=== PATIENT | female | born 1955 | race Caucasian/White ===

== ENCOUNTER 2018-09-25 08:58 | Outpatient (CLI) | payer SELFPAY ==
--- NOTE | 2018-09-25 13:39 | DI.COMBO_ITS ---
SYMPTOMS/DIAGNOSIS: SCREENING AND LEFT BREAST MASS MAMMOGRAM AND LEFT BREAST ULTRASOUND: Mammogram and left breast ultrasound are interpreted in conjunction. The breasts are of moderate density with fairly symmetrical distribution of fibroglandular tissue. There is a new area of mass-like radiodensity measuring up to about 3 cm in diameter in the upper outer quadrant of the left breast, which was not present on previous mammogram of March 2010. This corresponds to a 27 mm in greatest diameter ultrasonographically identified mass in approximately the 1 o'clock position 4 cm from the nipple. This has a somewhat irregular border and heterogeneous internal echotexture with slightly increased intralesional vascular flow. Microcalcifications are visible both mammographically and ultrasonographically. CONCLUSION: Indeterminate but suspicious left breast lesion, no additional lesion identified. Biopsy recommended. This may be accomplished with ultrasound guidance. Category 4, breast density category B. MQSA ASSESSMENT OF FINDINGS: Suspicious. Biopsy should be considered. Category 4. Patient will receive a letter notifying them of these results. BI-RADS category B. There are scattered areas of fibroglandular density.
== END 2018-09-25 09:18 ==
PROVIDERS: Visit Provider Obstetrics & Gynecology
DX: N63.21 Unspecified lump in the left breast, upper outer quadrant (principal); Z12.31 Encounter for screening mammogram for malignant neoplasm of breast
CPT/HCPCS: 76642; 77062; 77066; G0279

== ENCOUNTER 2018-10-07 00:31 | Outpatient (CLI) | payer SELFPAY ==
--- NOTE | 2018-10-07 08:00 | OPPNE_ITS ---
Procedure note- Procedure done in Radiology Consent discussed and patient signed Pre-op Dx: Left Breast Mass Post-op Dx: same Surgeon: Nilay Buchanan MD Anesthesia: Local anesthesia with 1% Lidocaine Blood loss: 2 cc Specimen: Core needle biopsy x3 Complications: no immediate complications Procedure: After informed consent was obtained the patient was placed in a supine position. US was done of the Breast and the lesion was localized by the US tech. The skin was cleaned with alcohol and infiltrated with the above local anesthetic. The skin was then prepped. An incision was made with an 11 blade. Using a 14 gauge core needle 3 specimens were removed and placed on telfa and placed in formalin. The skin was cleaned and dried and a band aid was applied. The patient tolerated the procedure well and there were no immediate complications.
--- NOTE | 2018-10-07 13:37 | DI.US_ITS ---
SYMPTOMS/DIAGNOSIS: LEFT BREAST MASS ULTRASOUND GUIDANCE FOR BREAST BIOPSY: Ultrasound guidance was provided for breast biopsy performed by Dr. Buchanan. Please see Dr. Buchanan's procedure note. Hard copies show needle placement in the left breast mass in the 1 o'clock position 4 cm from the nipple.
--- NOTE | 2018-10-07 14:00 | BREAST_PTH ---
PATIENT: Alberta Sommer LOC: [facility] U#:[id number] AGE/SX: 63/F ROOM: RE10/07/[address]: Alejandra Buchanan MD : 1955 BED: DIS: 10/07/2018 SPEC #: [id number] RECD: 10/07/18 17:39 STATUS: TERESA RESulema #: [id number] CT: 10/07/18 14:[address]: Alejandra Buchanan DEPT: Surgical Specimen RECD BY: Billie Askew Tissues: 1 - BREAST BX NEEDLE Procedures: GROSS AND MICRO LEVEL 4 HERCEPTEST ESTROGEN/PROGESTERONE RECEPTOR IPEX STAIN Comments: [id number]
== END 2018-10-07 00:51 ==
PROVIDERS: Visit Provider Surgery
DX: C50.412 Malignant neoplasm of upper-outer quadrant of left female breast (principal); Z17.0 Estrogen receptor positive status [ER+]
CPT/HCPCS: 19083; 88305; 76942; 88360

== ENCOUNTER 2018-11-05 07:06 | Day surgery (SDC) | payer SELFPAY ==
[2018-11-05] VITALS (12 sets, daily range): BP systolic 76–108; BP diastolic 33–64; PULSE 65–79; RESP 14–16; TEMP 36.1–36.6; O2SAT 95–100
--- NOTE | 2018-11-05 07:15 | W.PM.OP ---
Date of service: 11/05/18 Time of Service: 11:10 Operative Note Operative Note DATE OF PROCEDURE: 11/05/18 PRE-OP DIAGNOSIS: Left Breast Cancer POST-OP DIAGNOSIS: same PROCEDURE: 1. SLN biopsy 2. Needle localized lumpectomy left Breast SURGEON: Alejandra Buchanan INTERNAL REVENUE AGENT: Petty Lopez ANESTHESIA: GETA PATHOLOGY: other COMPLICATIONS: None Patient was transported to: PACU Patient's condition: stable Procedure Description: After informed consent was obtained the patient was taken to the PACU for anesthesia to do a erector spinae block on the left side. Once the block was done the patient was taken into the operating room and placed in a supine position. She was placed under general anesthesia and an LMA was placed. SCDs were applied. Next 2 cc of methylene blue was injected into the dermis around the nipple on the left and the area was massaged. Using the [employer] counter the axilla was scanned and a pat was placed on the skin at the hottest area. Tumor count was [id number]. The count in the axilla was 694. The left chest and left axilla were prepped and draped in a sterile surgical fashion. At this point a timeout was done. The patient's name, date of , antibiotic prophylaxis, DVT prophylaxis were reviewed. Fire risk with assessed. With the US the mass was identified and a needle was placed into the mass under US guidence. Next 1% Lidocaine with epinephrine was injected into the dermis at the site of incision near the wire and in the axilla at the previously marked area. Next an incision was made were the wire was with a 15 blade. Dissection was done around the mass with cautery. The tissue was grasped with an kevin and dissected around the periphery and the posterior portion of the mass down to the pectoralis muscle. Once the tissue was completely removed it was marked with a single suture at the superior corner and with a double suture at the anterior margin. The tissue was removed from the table and placed into a container for radiology. The specimen was the XRayed. The clip that was placed at the time of the biopsy was identified on the Xray. There was normal appearing tissue all around the mass. 4 vascular clips were placed into the cavity. Bleeding was stopped using suture ligation and cautery. Once the cavity was dry it was irrigated. Using a 15 blade the skin was incised in the axilla. The Adriana counter was used to identify the sentinel lymph node. At first I could not find the sentinel node. Dissection down to the lymph node was done bluntly with a hemostat. I then felt around with my fingers and felt a few enlarged lymph nodes that were stuck together. They were removed and placed in formalin. I then used the adriana counter under the pectoralis and was able to find a sentinel lymph node which was also blue. Once the lymph node was identified again it was removed and placed in a separate container with formalin. The adriana count was 3858. The adriana counter was then placed back into the axilla and no other hot lymph nodes were identified. Post lymph node 10-second count was less than 10% of the initial count. Some bleeding was noted within the axilla and this was stopped with cautery as well as suture ligation. Both wounds were irrigated again and dried. Once there was no more bleeding Jefferson was applied into both wounds. The subcutaneous tissue was re-approxiamted with 3-0 vicryl. The dermis was closed with running 4-0 vicryl. The skin was cleaned and dried. Skin-affix was applied to both incisions. At this point the patient was woken up extubated and moved over to the [facility]. Patient was taken back to recovery room in stable condition. Sponge instrument needle counts were correct x2 at the end of the case. There were no immediate complications.
--- NOTE | 2018-11-05 07:20 | PDOC.DSDIS_ITS ---
Discharge Plan Disposition Patient Disposition: HOME Condition: Good Discharge Details Reason For Visit: left Breast cancer Attending Provider: Alejandra Buchanan Home Meds and New Rx's Prescriptions: New acetaminophen [Tylenol] 325 mg tablet 650 mg PO Q6H PRN (Reason: fever or pain) Qty: 30 RF: 0 ibuprofen 600 mg tablet 600 mg PO Q6H PRN (Reason: fever or pain) Qty: 30 RF: 0 hydrocodone-acetaminophen [[place]] 5-325 mg tablet 1 tab PO Q6H PRN (Reason: pain) Qty: 14 RF: 0 Continued melatonin 3 mg tablet 5 mg PO HS PRNRF: 0 Discharge Instructions Instructions: Breast Lumpectomy (GEN), [place] Lymph Node Biopsy (GEN) Additional Instructions: Activity at Home after surgery: 1. Make sure you walk outside at least 4 times per day 2. You should be able to climb a flight of stairs 3. No driving while in pain or taking pain medications 4. No strenuous activity or heavy lifting for 2 weeks Diet, Nutrition, & wound healin. Avoid alcohol until after you are recovered from your surgery 2. Make sure to eat plenty of lean protein (meat, fish, eggs, cottage cheese, beans) 3. Eat a variety of fruits and vegetables. Eat plenty of high fiber foods to avoid constipation. 4. Drink plenty of liquids to stay hydrated and avoid constipation Pain Medications: 1. Alternate Tylenol 650 mg every 6 hours as needed and Ibuprofen 600 mg every 6 hours as needed 2. If a narcotic has been prescribed take as directed only for breakthrough pain For Constipation: 1. Take Milk of Magnesia or MiraLax as needed for constipation Other: 1. You may shower daily. Do not scrub the incisions 2. Do not soak the incisions for 1 week 3. You may alternate ice and heat as needed for pain and swelling Wound Care: 1. Keep the incisions clean and dry Please call our office if you develop: 1. Fevers >101.5 2. Nausea or Vomiting 3. Worsening pain 4. Redness and thick discharge from the wounds If after hours please call the Hospital at and ask to speak to the on-call surgeon Activity:: Activity as Tolerated Diet:: As Tolerated Discharge Orders Discharge Orders: Discharge Order (Routine); Ordered 11/05/18 Ordered By: Alejandra Buchanan DS: Diagnosis Discharge Diagnosis (1) Ductal carcinoma of left breast: Status: Acute (2) Status post partial mastectomy of left breast: Status: Acute
--- NOTE | 2018-11-05 08:00 | DI.NM_ITS ---
SYMPTOMS/DIAGNOSIS: LEFT BREAST CANCER, C50.412 SENTINAL NODE INJECTION ONLY: 1.0 millicuries of Sulfur Colloid was administered intradermally by Dr. Buchanan. Patient was followed in the operating room by shielded Gamma probe.
[2018-11-05] MEDS: Lactated Ringers 1,000 ML 80 ML IV ×2 (08:07→12:46)
[2018-11-05] MEDS: Bupivacaine LIPOSOME/PF 133 MG/10 ML VIAL IJ ×2 (09:25→12:23)
[2018-11-05] MEDS: Bupivacaine 0.25% Pres-Free 30 ML VIAL (09:25)
[2018-11-05] MEDS: ceFAZolin 2 GM/50 ML BAG 200 GM (10:54)
--- NOTE | 2018-11-05 11:00 | DI.US_ITS ---
EXAM: US NEEDLE LOCAL BREAST WO RAD CLINICAL HISTORY: NEWLY DIAGNOSED LT BREAST CA. TECHNIQUE: Specimen radiograph ultrasound performed using standard protocol. COMPARISON: US needle local breast wo rad from 10/07/2018 FINDINGS: Specimen radiograph was acquired on biopsy specimen provided by Dr. Buchanan. Specimen radiograph con firms that the mass and microcalcifications identified in the left breast on recent mammogram are pre sent in the biopsy specimen.
--- NOTE | 2018-11-05 11:50 | BREAST_PTH ---
PATIENT: Alberta Sommer LOC: [facility] U#:[id number] AGE/SX: 63/F ROOM: RE11/05/[address]: Alejandra Buchanan MD : 1955 BED: DIS: 11/05/2018 SPEC #: [id number] RECD: 11/06/18 12:29 STATUS: TERESA RESulema #: [id number] CT: 11/05/18 11:[address]: Alejandra Buchanan DEPT: Surgical Specimen RECD BY: Billie Askew Tissues: 1 - BREAST INCISION/EXCISION 2 - BREAST INCISION/EXCISION 3 - BREAST INCISION/EXCISION Procedures: GROSS AND MICRO LEVEL 5 Comments: [id number] (ALL SPECIMENS RADIOACTIVE)
[2018-11-05] MEDS: Lidocaine 1% Multi-Dose 50 ML VIAL (12:00)
--- NOTE | 2018-11-05 12:10 | DI.MAMMO_ITS ---
EXAM: MG MAMMO SPECIMEN CLINICAL HISTORY: OPERATIVE BIOPSY - SPECIMIEN DELIVERED TO DI. COMPARISON: mammo diagnostic BI from 09/25/2018 FINDINGS: Specimen radiographs were obtained and confirm that the microcalcifications and mass identified in th e left breast on recent mammography are in the biopsy specimen.
[2018-11-05] MEDS: Bupivacaine 0.25% Pres-Free 10 ML VIAL (12:23)
[2018-11-05] MEDS: HYDROmorphone 2 MG/ML VIAL IVP (13:30)
[2018-11-05] MEDS: LORazepam 2 MG/ML VIAL 0.5 MG IVP (13:50)
[2018-11-05] MEDS: Ibuprofen 600 MG TAB PO (16:12)
== END 2018-11-05 17:05 | disposition home or self-care (01) ==
PROVIDERS: Visit Provider Surgery
PROC: (CPT 38525; principal; 2018-11-05 09:30)
PROC: (CPT 38525; 2018-11-05 09:30)
DX: C50.412 Malignant neoplasm of upper-outer quadrant of left female breast (principal); Z17.0 Estrogen receptor positive status [ER+]; C77.3 Secondary and unspecified malignant neoplasm of axilla and upper limb lymph nodes
CPT/HCPCS: 38525; 19301; 38792; 76942; 77061; 77065; A9541; 88307; G0279; J0131; J0690; J1100; J1200; J1885; J2060; J2250; J2405; J3010

== ENCOUNTER 2018-11-25 10:32 | Day surgery (SDC) | payer SELFPAY ==
--- NOTE | 2018-11-25 06:59 | W.PM.OP ---
Date of service: 11/25/18 Time of Service: 12:41 Operative Note Operative Note DATE OF PROCEDURE: 11/25/18 PRE-OP DIAGNOSIS: Left Breast Cancer with positive anterior margin POST-OP DIAGNOSIS: same PROCEDURE: Re-excision of skin for positive margin SURGEON: Alejandra Buchanan AMPOULE FILLER AND SEALER: Petty Lopez ANESTHESIA: MAC (ASA 2/ Jhony Griffith CRNA) ESTIMATED BLOOD LOSS: 10 PATHOLOGY: other (skin, marked with single suture superior and double suture medial) COMPLICATIONS: None Patient was transported to: same day Patient's condition: stable Indications: Alberta is a pleasant 63 year old female with a diagnoses of Ductal Breast Cancer and DCIS. She is s/p Lumpectomy and SLN bx. The anterior margin( under the skin) was positive for DCIs. She is here today to have some skin removed to be able to get a clear margine. Risks, benefits an complications have been reviewed. Questions were answered to her staisfaction and she wished to proceed Findings: Seroma Procedure Description: After informed consent was obtained the patient was taken to the Operating room and placed in a supine position. She was placed under MAC sedation. Once asleep and comfortable a time out was done. Her name, , allergies and procedure to be done were reviewed. Next the patients left breast was prepped and draped in a standard fashion. Exparel mixed with .25% Bupivacain was injected into the dermis. An elliptical incision was made around the old scar. The incision measured 15 x 2 cm. The skin and subcutaneous tissue was removed and marked with a single suture superior and a double suture medial. The skin was placed in formalin. The cavity from the lumpectomy done 2 weeks ago was inspected. There was some serosanguinous fluid which was removed. Some bleeding was noted from the dermis and this was stopped with cautery. Once the skin was dry the subcutaneous tissue was re-approximated with interrupted 3-0 Vicryl and the dermis was closed with a continuous 4-0 vicryl suture. The skin was cleaned and dried and skin affix was applied. The patient was woken up and taken back to [facility] in stable condition. Instrument, sponge and needle counts were correct x 2.
--- NOTE | 2018-11-25 07:00 | W.PM.DSUDISC ---
Discharge Plan Disposition Patient Disposition: HOME Condition: Good Discharge Details Reason For Visit: (L) BREAST CA Attending Provider: Alejandra Buchanan Primary Care Provider: Rachelle Lundy Home Meds and New Rx's Prescriptions: New hydrocodone-acetaminophen [[place]] 5-325 mg tablet 1 tab PO Q6H PRN (Reason: pain) Qty: 14 RF: 0 lorazepam [Ativan] 1 mg tablet 1 mg PO TID PRN (Reason: anxiety) Qty: 14 RF: 0 Continued melatonin 3 mg tablet 5 mg PO HS PRNRF: 0 acetaminophen [Tylenol] 325 mg tablet 650 mg PO Q6H PRN (Reason: fever or pain) Qty: 30 RF: 0 ibuprofen 600 mg tablet 600 mg PO Q6H PRN (Reason: fever or pain) Qty: 30 RF: 0 hydrocodone-acetaminophen [[place]] 5-325 mg tablet 1 tab PO Q6H PRN (Reason: pain) Qty: 14 RF: 0 Discharge Instructions Additional Instructions: Activity at Home after surgery: 1. Make sure you walk outside at least 4 times per day 2. You should be able to climb a flight of stairs 3. No driving while in pain or taking pain medications 4. No strenuous activity or heavy lifting for 4weeks (open surgery) Diet, Nutrition, & wound healin. Avoid alcohol until after you are recovered from your surgery 2. Make sure to eat plenty of lean protein (meat, fish, eggs, cottage cheese, beans) 3. Eat a variety of fruits and vegetables. Eat plenty of high fiber foods to avoid constipation. 4. Drink plenty of liquids to stay hydrated and avoid constipation Pain Medications: 1. Alternate Tylenol 650 mg and Ibuprofen 600 mg every 3 hours 2. If a narcotic has been prescribed take as directed only for breakthrough pain Other Medications: Ativan 1 mg. May take 1/2 to 1 tab every 8 hours as needed for anxiety. Do not drive if you have taken this medication For Constipation: 1. Take Milk of Magnesia or MiraLax as needed for constipation Other: 1. You may shower daily. Do not scrub the incisions 2. Do not soak the incisions for 1 week 3. You may alternate ice and heat as needed for pain and swelling Wound Care: 1. Keep the incisions clean and dry Please call our office if you develop: 1. Fevers >101.5 2. Nausea or Vomiting 3. Worsening pain 4. Redness and thick discharge from the wounds If after hours please call the Hospital at and ask to speak to the on-call surgeon Referrals: Alejandra Buchanan MD [ [facility] STAFF PHYSICIAN] - 12/09/18 1:30 pm Activity:: Activity as Tolerated Diet:: As Tolerated Discharge Orders Discharge Orders: Discharge Order (Routine); Ordered 11/25/18 Ordered By: Alejandra Buchanan DS: Diagnosis Discharge Diagnosis (1) Ductal carcinoma of left breast: Status: Acute
[2018-11-25 11:12] VITALS: BP 132/69; PULSE 88; RESP 16; TEMP 36.4; O2SAT 97
[2018-11-25] MEDS: Lactated Ringers 1,000 ML 80 ML IV (11:40)
[2018-11-25] MEDS: Bupivacaine 0.25% Pres-Free 30 ML VIAL (12:45)
[2018-11-25] MEDS: Bupivacaine LIPOSOME/PF 133 MG/10 ML VIAL IJ (12:45)
--- NOTE | 2018-11-25 12:50 | SKI_PTH ---
PATIENT: Alberta Sommer LOC: [facility] U#:[id number] AGE/SX: 63/F ROOM: RE11/25/[address]: Alejandra Buchanan MD : 1955 BED: DIS: 11/25/2018 SPEC #: [id number] RECD: 11/25/18 18:36 STATUS: TERESA RESulema #: [id number] CT: 11/25/18 12:[address]: Alejandra Buchanan DEPT: Surgical Specimen RECD BY: Billie Askew ENTERED: 11/25/18 18:37 SP TYPE: MARTHA GROSS DR: Rachelle Lundy, PhD WOOD ROUTER HAND Tissues: 1 - SKIN BIOPSY(SHAVE/PUNCH) Procedures: SKIN LEVEL 4 Comments: [id number]
[2018-11-25 13:31] VITALS: BP 121/66; PULSE 84; RESP 20; TEMP 36.2; O2SAT 98
[2018-11-25] MEDS: HYDROmorphone 2 MG/ML VIAL 1 MG IVP (13:44)
[2018-11-25] MEDS: LORazepam 2 MG/ML VIAL 0.5 MG IVP (13:44)
[2018-11-25 13:55] VITALS: BP 137/57; PULSE 81; RESP 18; TEMP 36.5; O2SAT 98
[2018-11-25 14:37] VITALS: BP 114/59; PULSE 79; RESP 18; TEMP 36.3; O2SAT 98
== END 2018-11-25 15:48 | disposition home or self-care (01) ==
LOC: SUR 10:33
PROVIDERS: PCP Nurse Practitioner; Visit Provider Surgery
PROC: (CPT 11606; principal; 2018-11-25 12:30)
DX: C50.412 Malignant neoplasm of upper-outer quadrant of left female breast (principal)
CPT/HCPCS: 11606; 12035; 88305; J0690; J1885; J2060; J2250

== ENCOUNTER → 2019-01-02 12:38 | Outpatient (REF) | payer SELFPAY | LOC: LBN 12:38 | PROVIDERS: PCP Nurse Practitioner; Visit Provider Surgery | DX: T81.49XA Infection following a procedure, other surgical site, initial encounter (principal); C50.912 Malignant neoplasm of unspecified site of left female breast; Z90.12 Acquired absence of left breast and nipple | CPT/HCPCS: 87077; 87070; 87186; 87205 ==

== ENCOUNTER 2019-03-17 11:00 | Outpatient (RCR) | payer OTHER, SELFPAY ==
[2019-03-03] MEDS: Normal Saline Flush 10 ML SYR 30 ML IVP (12:05)
[2019-03-03] MEDS: Heparin 500 UNITS/5 ML SYRINGE IVP (12:05)
[2019-03-03 12:27] LABS: Abs Immature Grans 1.27 k/cumm (0.0-0.09); HCT 35.3 % (36.0-46.0); HGB 11.7 g/dL (12.0-15.5); Mean Corp. HGB Concentration 33.1 g/dL (32.0-36.0); Mean Corpuscular Volume 90.5 fL (80-95); Mean Platelet Volume 9.5 fL (8.0-11.0); RBC Distribution Width 12.4 % (11.7-14.6); White Blood Cell Count 10.89 k/cumm (4.4-10.8)
[2019-03-03 12:46] LABS: ALT 30 U/L (14-59); AST 16 U/L (15-37); Albumin 3.6 g/dL (3.4-5.0); Alkaline Phosphatase 89 U/L (46-116); Anion Gap 7.8 mmol/L (3-11); BUN 8 mg/dL (7-18); Bilirubin, Total 0.3 mg/dL (0.2-1.0); CO2 30.2 mmol/L (21.0-32.0); CREATININE 0.54 mg/dL (0.55-1.02); Calcium 9.1 mg/dL (8.5-10.1); Chloride 104 mmol/L (98-107); Glucose 100 mg/dL (74-106); Sodium 142 mmol/L (136-145)
[2019-03-03 13:11] LABS: Absolute Lymphocyte Count 2.72 k/cumm (1.2-3.4); Absolute Monocyte Count 1.96 k/cumm (0.11-0.7); Platelet Count 246 x1000/uL (130-400)
[2019-03-03 13:12] LABS: Diff Comment Manual Differential; RBC Morphology Normal
[2019-03-17] MEDS: Heparin 500 UNITS/5 ML SYRINGE IVP (11:05)
[2019-03-17] MEDS: Normal Saline Flush 10 ML SYR 30 ML IVP (11:05)
[2019-03-17 11:40] LABS: Abs Immature Grans 0.97 k/cumm (0.0-0.09); HCT 29.4 % (36.0-46.0); HGB 9.6 g/dL (12.0-15.5); Mean Corp. HGB Concentration 32.7 g/dL (32.0-36.0); Mean Corpuscular Hemoglobin 30.2 pg (27.0-33.0); Mean Corpuscular Volume 92.5 fL (80-95); Mean Platelet Volume 9.9 fL (8.0-11.0); Platelet Count 184 x1000/uL (130-400); RBC 3.18 m/cumm (4.00-5.20); RBC Distribution Width 14.2 % (11.7-14.6); White Blood Cell Count 9.23 k/cumm (4.4-10.8)
[2019-03-17 11:51] LABS: ALT 26 U/L (14-59); AST 15 U/L (15-37); Albumin 3.5 g/dL (3.4-5.0); Alkaline Phosphatase 82 U/L (46-116); Anion Gap 7.4 mmol/L (3-11); BUN 6 mg/dL (7-18); Bilirubin, Total 0.2 mg/dL (0.2-1.0); CO2 30.6 mmol/L (21.0-32.0); CREATININE 0.63 mg/dL (0.55-1.02); Calcium 8.1 mg/dL (8.5-10.1); Chloride 104 mmol/L (98-107); Glucose 96 mg/dL (74-106); Potassium 3.8 mmol/L (3.5-5.1); Sodium 142 mmol/L (136-145); Total Protein 6.5 g/dL (6.4-8.2)
[2019-03-17 11:59] LABS: Absolute Lymphocyte Count 2.68 k/cumm (1.2-3.4); Absolute Monocyte Count 0.55 k/cumm (0.11-0.7); Absolute Neutrophil Count 5.45 k/cumm (1.2-6.7)
[2019-03-17 12:00] LABS: Diff Comment Manual Differential; Polychromasia Present
== END 2019-03-20 23:59 | disposition home or self-care (01) ==
LOC: INF 11:00
PROVIDERS: PCP Nurse Practitioner; Visit Provider Family Medicine
DX: C50.412 Malignant neoplasm of upper-outer quadrant of left female breast (principal); Z17.0 Estrogen receptor positive status [ER+]; Z45.2 Encounter for adjustment and management of vascular access device
CPT/HCPCS: 36591; 80053; 96372; 85025; J2505

== ENCOUNTER 2019-04-13 01:26 | Outpatient (RCR) | payer OTHER, SELFPAY ==
[2019-03-30] MEDS: Normal Saline Flush 10 ML SYR IVP (13:28)
[2019-03-30] MEDS: Heparin 500 UNITS/5 ML SYRINGE IV (13:29)
[2019-03-30 13:43] LABS: Abs Immature Grans 0.07 k/cumm (0.0-0.09); Absolute Basophil Count 0.02 k/cumm (0.0-0.2); Absolute Eosinophil Count 0.01 k/cumm (0.0-0.7); Absolute Lymphocyte Count 1.73 k/cumm (1.2-3.4); Absolute Monocyte Count 0.63 k/cumm (0.11-0.7); Absolute Neutrophil Count 2.74 k/cumm (1.2-6.7); Basophils % 0.4; Eosinophils % 0.2; HCT 25.8 % (36.0-46.0); HGB 8.7 g/dL (12.0-15.5); Immature Grans % 1.3 %; Lymphocytes % 33.3; Mean Corp. HGB Concentration 33.7 g/dL (32.0-36.0); Mean Corpuscular Hemoglobin 30.6 pg (27.0-33.0); Mean Corpuscular Volume 90.8 fL (80-95); Mean Platelet Volume 11.2 fL (8.0-11.0); Monocytes % 12.1; Neutrophils % 52.7; Platelet Count 111 x1000/uL (130-400); RBC 2.84 m/cumm (4.00-5.20); RBC Distribution Width 15.5 % (11.7-14.6)
[2019-03-30 14:01] LABS: ALT 59 U/L (14-59); AST 14 U/L (15-37); Albumin 3.6 g/dL (3.4-5.0); Alkaline Phosphatase 91 U/L (46-116); Anion Gap 5.8 mmol/L (3-11); BUN 8 mg/dL (7-18); Bilirubin, Total 0.3 mg/dL (0.2-1.0); CO2 28.2 mmol/L (21.0-32.0); CREATININE 0.62 mg/dL (0.55-1.02); Calcium 8.6 mg/dL (8.5-10.1); Chloride 104 mmol/L (98-107); Glucose 100 mg/dL (74-106); Potassium 3.6 mmol/L (3.5-5.1); Sodium 138 mmol/L (136-145); Total Protein 6.6 g/dL (6.4-8.2)
[2019-03-30 14:19] LABS: Anisocytosis 2+; Diff Comment RBC Morph Reviewed; Poikilocytes 1+; Polychromasia Present
[2019-04-13] MEDS: Heparin 500 UNITS/5 ML SYRINGE IV (13:15)
[2019-04-13] MEDS: Normal Saline Flush 10 ML SYR IVP (13:15)
[2019-04-13 13:31] LABS: Abs Immature Grans 0.12 k/cumm (0.0-0.09); Absolute Basophil Count 0.03 k/cumm (0.0-0.2); Absolute Eosinophil Count 0.02 k/cumm (0.0-0.7); Absolute Monocyte Count 0.91 k/cumm (0.11-0.7); Absolute Neutrophil Count 7.29 k/cumm (1.2-6.7); Basophils % 0.3; Eosinophils % 0.2; HCT 30.6 % (36.0-46.0); HGB 10.1 g/dL (12.0-15.5); Immature Grans % 1.1 %; Lymphocytes % 20.8; Mean Corpuscular Hemoglobin 32.2 pg (27.0-33.0); Mean Corpuscular Volume 97.5 fL (80-95); Mean Platelet Volume 9.5 fL (8.0-11.0); Monocytes % 8.6; Platelet Count 277 x1000/uL (130-400); RBC 3.14 m/cumm (4.00-5.20); RBC Distribution Width 20.3 % (11.7-14.6); White Blood Cell Count 10.57 k/cumm (4.4-10.8)
[2019-04-13 13:41] LABS: ALT 28 U/L (14-59); AST 16 U/L (15-37); Albumin 3.5 g/dL (3.4-5.0); Alkaline Phosphatase 110 U/L (46-116); Anion Gap 6.9 mmol/L (3-11); BUN 8 mg/dL (7-18); Bilirubin, Total 0.4 mg/dL (0.2-1.0); CO2 28.1 mmol/L (21.0-32.0); CREATININE 0.53 mg/dL (0.55-1.02); Calcium 8.2 mg/dL (8.5-10.1); Chloride 104 mmol/L (98-107); Glucose 104 mg/dL (74-106); Potassium 3.9 mmol/L (3.5-5.1); Sodium 139 mmol/L (136-145); Total Protein 6.8 g/dL (6.4-8.2)
[2019-04-13 13:57] LABS: Diff Comment RBC Morph Reviewed
[2019-04-13 13:58] LABS: Anisocytosis 2+; Macrocytosis 1+; Microcytosis 1+
== END 2019-04-18 23:59 | disposition home or self-care (01) ==
LOC: INF 01:26
PROVIDERS: PCP Nurse Practitioner; Visit Provider Internal Medicine Medical Oncology
DX: C50.412 Malignant neoplasm of upper-outer quadrant of left female breast (principal); Z17.0 Estrogen receptor positive status [ER+]; C50.912 Malignant neoplasm of unspecified site of left female breast; Z85.820 Personal history of malignant melanoma of skin; Z45.2 Encounter for adjustment and management of vascular access device
CPT/HCPCS: 36591; 80053; 85025

== ENCOUNTER 2019-05-11 02:16 | Outpatient (RCR) | payer OTHER, SELFPAY ==
[2019-04-27] MEDS: Normal Saline Flush 10 ML SYR IVP (13:11)
[2019-04-27] MEDS: Heparin 500 UNITS/5 ML SYRINGE IV (13:12)
[2019-04-27 13:21] LABS: Absolute Basophil Count 0.01 k/cumm (0.0-0.2); Absolute Eosinophil Count 0.15 k/cumm (0.0-0.7); Absolute Lymphocyte Count 1.47 k/cumm (1.2-3.4); Absolute Monocyte Count 0.39 k/cumm (0.11-0.7); Basophils % 0.2; Eosinophils % 3.7; HCT 31.3 % (36.0-46.0); HGB 10.2 g/dL (12.0-15.5); Lymphocytes % 36.6; Mean Corp. HGB Concentration 32.6 g/dL (32.0-36.0); Mean Corpuscular Hemoglobin 31.8 pg (27.0-33.0); Mean Corpuscular Volume 97.5 fL (80-95); Mean Platelet Volume 9.3 fL (8.0-11.0); Monocytes % 9.7; Neutrophils % 49.8; Platelet Count 307 x1000/uL (130-400); RBC 3.21 m/cumm (4.00-5.20); RBC Distribution Width 17.8 % (11.7-14.6); White Blood Cell Count 4.02 k/cumm (4.4-10.8)
[2019-04-27 13:34] LABS: ALT 19 U/L (14-59); AST 13 U/L (15-37); Albumin 3.7 g/dL (3.4-5.0); Alkaline Phosphatase 59 U/L (46-116); Anion Gap 8.2 mmol/L (3-11); BUN 7 mg/dL (7-18); Bilirubin, Total 0.6 mg/dL (0.2-1.0); CO2 26.8 mmol/L (21.0-32.0); Calcium 8.9 mg/dL (8.5-10.1); Chloride 104 mmol/L (98-107); Glucose 123 mg/dL (74-106); Sodium 139 mmol/L (136-145); Total Protein 6.8 g/dL (6.4-8.2)
[2019-05-11] MEDS: Heparin 500 UNITS/5 ML SYRINGE IV (13:12)
[2019-05-11] MEDS: Normal Saline Flush 10 ML SYR IVP (13:12)
[2019-05-11 13:24] LABS: Absolute Basophil Count 0.02 k/cumm (0.0-0.2); Absolute Eosinophil Count 0.18 k/cumm (0.0-0.7); Absolute Lymphocyte Count 1.78 k/cumm (1.2-3.4); Absolute Monocyte Count 0.45 k/cumm (0.11-0.7); Absolute Neutrophil Count 2.87 k/cumm (1.2-6.7); Basophils % 0.4; Eosinophils % 3.4; HCT 32.4 % (36.0-46.0); HGB 10.8 g/dL (12.0-15.5); Lymphocytes % 33.6; Mean Corp. HGB Concentration 33.3 g/dL (32.0-36.0); Mean Corpuscular Hemoglobin 32.7 pg (27.0-33.0); Mean Corpuscular Volume 98.2 fL (80-95); Mean Platelet Volume 9.6 fL (8.0-11.0); Monocytes % 8.5; Neutrophils % 54.1; Platelet Count 231 x1000/uL (130-400); RBC Distribution Width 14.7 % (11.7-14.6)
[2019-05-11 13:44] LABS: ALT 35 U/L (14-59); AST 16 U/L (15-37); Albumin 3.7 g/dL (3.4-5.0); Alkaline Phosphatase 61 U/L (46-116); Anion Gap 7.3 mmol/L (3-11); BUN 9 mg/dL (7-18); Bilirubin, Total 0.8 mg/dL (0.2-1.0); CO2 28.7 mmol/L (21.0-32.0); CREATININE 0.56 mg/dL (0.55-1.02); Calcium 8.4 mg/dL (8.5-10.1); Chloride 102 mmol/L (98-107); Glucose 112 mg/dL (74-106); Potassium 3.9 mmol/L (3.5-5.1); Sodium 138 mmol/L (136-145)
== END 2019-05-19 23:59 | disposition home or self-care (01) ==
LOC: INF 02:16
PROVIDERS: PCP Nurse Practitioner; Visit Provider Internal Medicine Medical Oncology
DX: C50.412 Malignant neoplasm of upper-outer quadrant of left female breast (principal); Z17.0 Estrogen receptor positive status [ER+]; C50.912 Malignant neoplasm of unspecified site of left female breast; Z85.820 Personal history of malignant melanoma of skin; Z45.2 Encounter for adjustment and management of vascular access device
CPT/HCPCS: 36591; 80053; 85025

== ENCOUNTER 2019-06-16 00:39 | Outpatient (RCR) | payer OTHER, SELFPAY ==
[2019-06-16] MEDS: Normal Saline Flush 10 ML SYR IVP (14:45)
[2019-06-16] MEDS: Heparin 500 UNITS/5 ML SYRINGE IV (14:46)
== END 2019-06-18 23:59 | disposition home or self-care (01) ==
LOC: INF 00:39
PROVIDERS: PCP Nurse Practitioner; Visit Provider Internal Medicine Hematology & Oncology
DX: Z45.2 Encounter for adjustment and management of vascular access device (principal)
CPT/HCPCS: 96523

== ENCOUNTER 2019-07-24 03:29 | Outpatient (RCR) | payer OTHER, SELFPAY ==
[2019-07-24] MEDS: Heparin 500 UNITS/5 ML SYRINGE IV (10:30)
[2019-07-24] MEDS: Normal Saline Flush 10 ML SYR IVP (10:30)
== END 2019-08-18 23:59 | disposition home or self-care (01) ==
LOC: INF 03:29
PROVIDERS: PCP Nurse Practitioner; Visit Provider Internal Medicine Hematology & Oncology
DX: Z45.2 Encounter for adjustment and management of vascular access device (principal)
CPT/HCPCS: 96523

== ENCOUNTER 2019-08-17 01:45 | Outpatient (CLI) | payer OTHER, SELFPAY ==
--- NOTE | 2019-08-17 | DI.US_ITS ---
EXAM: US CAROTID CLINICAL HISTORY: FAINTING S/P VALSALVA,LT BREAST CA S/P CHEMO, XRT,DRAINING LYMPHATICS. TECHNIQUE: Ultrasound carotids performed using grayscale, color-flow, and spectral Doppler imaging. COMPARISON: No exams were available for comparison FINDINGS: RIGHT CAROTID ARTERY: Plaque: No significant plaque identified. Velocity elevation: None. LEFT CAROTID ARTERY: Plaque: Minimal. Velocity elevation: None. VERTEBRAL ARTERIES: Antegrade flow. Measurements: R Bulb: 78.4cm/s PS / 25.1cm/s ED R CCA: 109.9cm/s PS / 30.8cm/s ED R ECA: 72cm/s PS / 12.9cm/s ED R ICA Prox: 86.8cm/s PS /28.3cm/s ED R ICA Mid: 108cm/s PS / 38.6cm/s ED R ICA Distal: 164.7cm/s PS /69.4cm/s ED R Vert: 55.7cm/s PS / 23.1cm/s ED R SVR: 1.5 R DVR: 2.25 L Bulb: 98.3cm/s PS /34.7cm/s ED L CCA: 110.6cm/s PS / 35.4cm/s ED L ECA: 102.7cm/s PS /21.7cm/s ED L ICA Prox:95.4cm/s PS / 34cm/s ED L ICA Mid: 107.7cm/sPS / 39.8cm/s ED L ICA Distal: 120.7cm/s PS / 47cm/s ED L Vert: 65.7cm/s PS / 21cm/s ED L SVR: 1.09 L DVR: 1.33 IMPRESSION: 1. 50-69 percent stenosis seen in the distal right internal carotid artery. 2. No hemodynamically significant velocity elevations on the left. Criteria for Carotid Stenosis: Normal: ICA PSV <125 cm/s no plaque or intimal thickening is visible. <50% stenosis: ICA PSV <125 cm/s and plaque or intimal thickening is visible. 50-69% stenosis: ICA PSV is 125-250 cm/s and plaque is visible. >70% stenosis to near occlusion: ICA PSV >250 cm/s with visible plaque and luminal narrowing. DATA REPOSITORY:
== END 2019-08-17 02:05 ==
PROVIDERS: PCP Nurse Practitioner; Visit Provider Radiology Radiation Oncology
DX: R55 Syncope and collapse (principal); I65.21 Occlusion and stenosis of right carotid artery
CPT/HCPCS: 93880

== ENCOUNTER 2019-09-29 01:28 | Outpatient (CLI) | payer OTHER, SELFPAY ==
--- NOTE | 2019-09-29 | DI.MAMMO_ITS ---
EXAM: MG MAMMO SCREENING 60 MIN DUR CLINICAL HISTORY: PERSONAL H/O BREAST CA,C50.912,S/P TREATMENT,YEARLY TECHNIQUE: Bilateral full field digital CC and MLO mammographic images were obtained with 3D tomosyn thesis and utilizing computer aided detection (CAD). COMPARISON: Available for comparison. FINDINGS: Masses/Architectural Distortion: Since the prior examination, the patient has undergone a left lumpec philipp. No suspicious masses are seen. Microcalcifications: No suspicious pleomorphic-type are seen. Skin Thickening/Nipple Retraction: Post therapeutic changes are seen in the skin. IMPRESSION: 1. No specific features to suggest malignancy. Postsurgical and post therapeutic changes in the left breast. 2. Unless there is more urgent need, screening mammography is recommended, as per [place] [employer] guidelines. 3. Findings were discussed with the patient on the date of the examination. BI-RADS Category 2 - Benign Findings Breast Density - Category B - Scattered areas of fibroglandular density A negative radiographic report should not delay biopsy if a dominant or clinically suspicious mass is present. Up to ten percent of cancers are not identified on mammography. A negative report may reinforce clinical impression. Adenosis and dense breasts may obscure an underlying neoplasm. False positive reports average 6 to 10%. Patient will receive a letter notifying them of these results.
== END 2019-09-29 01:48 ==
PROVIDERS: PCP Nurse Practitioner; Visit Provider Radiology Radiation Oncology
DX: Z12.31 Encounter for screening mammogram for malignant neoplasm of breast (principal); C50.912 Malignant neoplasm of unspecified site of left female breast
CPT/HCPCS: 77063; 77067

== ENCOUNTER 2020-01-13 02:20 | Outpatient (CLI) | payer OTHER, SELFPAY ==
[2020-01-13 13:04] LABS: Calculated LDL 148 mg/dL (<100); Cholesterol 239 mg/dL (<200); HDL Cholesterol 64 mg/dL (40-60); Triglyceride 136 mg/dL (<150)
[2020-01-13 13:11] LABS: Hemoglobin A1C 5.3 % (<5.7)
== END 2020-01-13 02:40 ==
PROVIDERS: PCP Nurse Practitioner; Visit Provider Nurse Practitioner
DX: Z13.1 Encounter for screening for diabetes mellitus (principal); Z13.6 Encounter for screening for cardiovascular disorders
CPT/HCPCS: 36415; 80061; 83036

== ENCOUNTER 2020-10-20 01:40 | Outpatient (CLI) | payer OTHER, SELFPAY ==
--- NOTE | 2020-10-20 14:24 | DI.MAMMO_ITS ---
Exam(s) MG MAMMO SCREENING 60 MIN DUR EXAM: MG MAMMO SCREENING 60 MIN DUR CLINICAL HISTORY: SCREENING, PERSONAL H/O BREAST CA,C50.412,S/P XRT FOR LT BREAST CA TECHNIQUE: Mammograms were interpreted according to the usual protocol including computer analysis w [employer] CAD system, tomosynthesis and C-view imaging. COMPARISON: 2018 and 2019 FINDINGS: The breasts are composed of scattered fibroglandular densities, Breast Density category B. No suspicious masses or suspicious microcalcifications are seen. Post lumpectomy scarring and surgic al clips are again noted in the upper outer quadrant of the left breast. There is stable left breast skin thickening. No abnormal axillary lymph nodes are seen. There has been no significant change from prior exams. IMPRESSION: BI-RADS Cat 2 - Benign Findings Yearly screening mammography is recommended. Breast Density - Category B, scattered fibroglandular densities. A negative radiographic report should not delay biopsy if a dominant or clinically suspicious mass is present. Up to ten percent of cancers are not identified on mammography. A negative report may reinforce clinical impression. Adenosis and dense breasts may obscure an underlying neoplasm. False positive reports average 6 to 10%. Patient will receive a letter notifying them of these results.
== END 2020-10-20 02:00 ==
PROVIDERS: PCP Nurse Practitioner; Visit Provider Radiology Radiation Oncology
DX: Z12.31 Encounter for screening mammogram for malignant neoplasm of breast (principal); Z85.3 Personal history of malignant neoplasm of breast
CPT/HCPCS: 77063; 77067

== ENCOUNTER → 2021-12-07 02:55 | Outpatient (CLI) | payer MEDICARE, SELFPAY ==
--- NOTE | 2021-12-07 10:45 | DI.MAMMO_ITS ---
Exam(s) MG MAMMO SCREENING 60 MIN DUR EXAM: MG MAMMO SCREENING 60 MIN DUR CLINICAL HISTORY: SCREENING, H/O BREAST CA, LT BREAST UOQ, C50.412, Z17.0 TECHNIQUE: Mammograms were interpreted according to the usual protocol including computer analysis w [employer] CAD system, tomosynthesis and C-view imaging. COMPARISON: FINDINGS: Note is made of a prior left upper outer quadrant lumpectomy for breast carcinoma. No new mass or cl umped microcalcification identified in either breast. No significant interval change in appearance i n comparison with prior examinations including October 2020. IMPRESSION: No specific evidence of malignancy at this time. Routine screening examinations are suggested at yea rly intervals due to the history of breast carcinoma. BI-RADS Category 1 - Negative Breast Density - Category C - Heterogeneously dense
== END ==
PROVIDERS: PCP Nurse Practitioner; Visit Provider Internal Medicine Medical Oncology
DX: Z12.31 Encounter for screening mammogram for malignant neoplasm of breast (principal); R92.8 Other abnormal and inconclusive findings on diagnostic imaging of breast
CPT/HCPCS: 77063; 77067

== ENCOUNTER 2022-03-16 00:02 | Outpatient (CLI) | payer MEDICARE, SELFPAY ==
--- NOTE | 2022-03-16 | DI.DEXA_ITS ---
Exam(s) XR DEXA BONE DENSITY W/WO KEVIN EXAM: XR DEXA BONE DENSITY W/WO KEVIN CLINICAL HISTORY: SCREENING FOR BREAST CA,INTERMEDIATE AROMATASE, Z78.0 TECHNIQUE: COMPARISON: No exams were available for comparison FINDINGS: Lateral Spine Image: Unremarkable. No compression deformities identified. Left hip: Total T-Score: -1.2 Total Z-Score: 0.1 T- and Z-scores: Findings are consistent with osteopenia. Lumbar Spine: Total T-Score: -0.2 Total Z-Score: 1.7 T- and Z-scores: Within normal limits. IMPRESSION: No evidence of osteoporosis.
== END 2022-03-16 00:22 ==
PROVIDERS: PCP Nurse Practitioner Family; Visit Provider Internal Medicine Medical Oncology
DX: Z78.0 Asymptomatic menopausal state (principal); M85.88 Other specified disorders of bone density and structure, other site; Z85.3 Personal history of malignant neoplasm of breast; Z17.0 Estrogen receptor positive status [ER+]
CPT/HCPCS: 77080

== ENCOUNTER 2022-04-25 03:00 | Outpatient (CLI) | payer OTHER, SELFPAY ==
[2022-04-25 12:26] LABS: HGB 12.7 g/dL (11.2-15.7); MCHC 33.4 % (32.0-36.0); MCV 93 fL (80-95); MPV 10.9 fL (8.0-11.0); Platelet Count 227 10^3/uL (130-400); RDW 12.2 % (11.7-14.6); RDW-SD 41.1 fL
[2022-04-25 12:59] LABS: Anion Gap 7.7 mmol/L (3-11); BUN 11 mg/dL (7-18); CO2 29.3 mmol/L (21.0-32.0); CREATININE 0.6 mg/dL (0.55-1.02); Calcium 9.3 mg/dL (8.5-10.1); Calculated LDL 142 mg/dL (<100); Chloride 102 mmol/L (98-107); Cholesterol 217 mg/dL (<200); Estimated GFR 98.93 (mL/min/1.73m2); Glucose 96 mg/dL (74-106); HDL Cholesterol 56 mg/dL (40-60); Potassium 3.9 mmol/L (3.5-5.1); Sodium 139 mmol/L (136-145); Triglyceride 99 mg/dL (<150)
[2022-04-25 13:24] LABS: TSH (W/Ref FT4) 1.67 uIU/mL (0.36-3.74)
== END 2022-04-25 03:01 | disposition home or self-care (01) ==
LOC: LOS 03:00
PROVIDERS: PCP Nurse Practitioner Family; Visit Provider Nurse Practitioner Family
DX: R53.83 Other fatigue (principal); E78.5 Hyperlipidemia, unspecified
CPT/HCPCS: 36415; 80048; 80061; 85027; 84443

== ENCOUNTER → 2022-10-04 13:23 | Outpatient (BNVA) | payer OTHER, SELFPAY | PROVIDERS: PCP Nurse Practitioner Family; Referring Provider Nurse Practitioner Family; Visit Provider Physical Therapy Assistant | DX: Z12.11 Encounter for screening for malignant neoplasm of colon (principal) ==

== ENCOUNTER → 2022-12-10 01:45 | Outpatient (CLI) | payer OTHER, SELFPAY ==
--- NOTE | 2022-12-10 13:41 | DI.MAMMO_ITS ---
Exam(s) MG MAMMO SCREENING 60 MIN DUR EXAM: MG MAMMO SCREENING 60 MIN DUR CLINICAL HISTORY: BREAST CANCER SCREENING Z12.31 S/P L BREAST XRT. TECHNIQUE: Bilateral full field digital CC and MLO mammographic images were obtained with 3D tomosyn thesis and utilizing computer aided detection (CAD). COMPARISON: Prior mammograms were reviewed. This patient underwent left breast lumpectomy for malignancy in October 2018. FINDINGS: Left breast lumpectomy site appears stable and there are no new left breast findings. No new right breast findings. There are no new spiculated masses nor new malignant appearing microcalcification groups. IMPRESSION: No radiographic evidence of malignancy. Stable left breast lumpectomy site BI-RADS Category 2 - Benign Findings Breast Density - Category B - Scattered areas of fibroglandular density Breast density Category C or D implies that the patient has dense breast tissue. Dense breast tissue can make it harder to find cancer on a mammogram. Dense breast tissue is also associated with an incr eased risk of breast cancer. This information about the result of the mammogram report was provided to the patient to raise their awareness. Use this report when you speak with the patient about their risks for breast cancer, which includes their family history. At that time, you may recommend additional screening tests (Ultrasoun d or MRI) as these tests may add significant information. A negative radiographic report should not delay biopsy if a dominant or clinically suspicious mass is present. Up to ten percent of cancers are not identified on mammography. A negative report may reinforce clinical impression. Adenosis and dense breasts may obscure an underlying neoplasm. False positive reports average 6 to 10%. Patient will receive a letter notifying them of these results.
== END ==
PROVIDERS: PCP Nurse Practitioner Family; Visit Provider Radiology Radiation Oncology
DX: Z12.31 Encounter for screening mammogram for malignant neoplasm of breast (principal); Z90.12 Acquired absence of left breast and nipple
CPT/HCPCS: 77063; 77067

== ENCOUNTER 2023-04-11 13:25 | Outpatient (CLI) | payer MEDICARE, SELFPAY ==
--- NOTE | 2023-04-11 13:15 | RT.EKG_ITS ---
APPROVED REPORT Exam: Resting ECG Reason for Exam: arrythmia Patient Location: O HR:84 bpm ECG Measurements Heart Rate 84 AXIS WY 134 P 64 QRSd 94 QRS 43 QT 370 T 62 QTc 438 Conclusion Sinus rhythm...normal P axis, V-rate 50- 99 Normal Electrocardiogram
== END 2023-04-11 13:26 | disposition home or self-care (01) ==
PROVIDERS: PCP Nurse Practitioner Family; Visit Provider Nurse Practitioner Family
DX: I49.9 Cardiac arrhythmia, unspecified (principal)
CPT/HCPCS: 93010

== ENCOUNTER 2023-06-19 05:40 | Outpatient (CLI) | payer MEDICARE, SELFPAY ==
[2023-06-19 12:16] LABS: HCT 40.1 % (36.0-46.0); HGB 12.9 g/dL (11.2-15.7); MCH 31.2 pg (27.0-33.0); MCHC 32.2 % (32.0-36.0); MCV 97 fL (80-95); MPV 10.8 fL (8.0-11.0); Platelet Count 261 10^3/uL (130-400); RBC 4.14 10^6/uL (3.93-5.22); RDW 11.9 % (11.7-14.6); RDW-SD 42.7 fL; WBC 9.33 10^3/uL (4.4-10.8)
[2023-06-19 12:26] LABS: Anion Gap 6.5 mmol/L (3-11); BUN 7 mg/dL (7-18); CO2 33.5 mmol/L (21.0-32.0); CREATININE 0.7 mg/dL (0.55-1.02); Calcium 9.6 mg/dL (8.5-10.1); Calculated LDL 170 mg/dL (<100); Chloride 102 mmol/L (98-107); Cholesterol 254 mg/dL (<200); Estimated GFR 94.73 (mL/min/1.73m2); Glucose 104 mg/dL (74-106); HDL Cholesterol 62 mg/dL (40-60); Potassium 3.6 mmol/L (3.5-5.1); Sodium 142 mmol/L (136-145); Triglyceride 112 mg/dL (<150)
== END 2023-06-19 05:41 | disposition home or self-care (01) ==
LOC: LOS 05:40
PROVIDERS: PCP Nurse Practitioner Family; Visit Provider Nurse Practitioner Family
DX: Z00.00 Encounter for general adult medical examination without abnormal findings (principal); F32.1 Major depressive disorder, single episode, moderate; E78.5 Hyperlipidemia, unspecified; G62.0 Drug-induced polyneuropathy; D04.5 Carcinoma in situ of skin of trunk
CPT/HCPCS: 36415; 80048; 80061; 85027

== ENCOUNTER 2023-12-17 01:20 | Outpatient (CLI) | payer MEDICARE, SELFPAY ==
--- NOTE | 2023-12-17 | DI.MAMMO_ITS ---
Exam(s) MG MAMMO SCREENING 60 MIN DUR EXAM: MG MAMMO SCREENING 60 MIN DUR CLINICAL HISTORY: SCREENING, S/P XRT FOR LT BREAST CA,YEARLY,Z12.31 TECHNIQUE: Mammograms were interpreted according to the usual protocol including computer analysis w [employer] CAD system, tomosynthesis and C-view imaging. COMPARISON: 2018 through 2022 FINDINGS: The breasts are composed of scattered fibroglandular densities, Breast Density category B. No suspicious masses or suspicious microcalcifications are seen. Lumpectomy site left upper-outer qu adrant appears stable. Surgical clips in place. Stable left-sided skin thickening. No visible axillary lymph nodes. There has been no significant change from prior exams. IMPRESSION: BI-RADS Category 2 - Benign Findings Yearly screening mammography is recommended. Breast Density - Category B, scattered fibroglandular densities. A negative radiographic report should not delay biopsy if a dominant or clinically suspicious mass is present. Up to ten percent of cancers are not identified on mammography. A negative report may reinforce clinical impression. Adenosis and dense breasts may obscure an underlying neoplasm. False positive reports average 6 to 10%. Patient will receive a letter notifying them of these results.
== END 2023-12-17 01:40 ==
LOC: DI 01:20
PROVIDERS: PCP Nurse Practitioner Family; Visit Provider Radiology Radiation Oncology
DX: Z12.31 Encounter for screening mammogram for malignant neoplasm of breast (principal)
CPT/HCPCS: 77063; 77067

== ENCOUNTER 2024-04-13 03:07 | Outpatient (CLI) | payer MEDICARE, SELFPAY ==
[2024-04-13 12:30] LABS: HCT 38.3 % (36.0-46.0); HGB 12.9 g/dL (11.2-15.7); MCH 31.9 pg (27.0-33.0); MCHC 33.7 % (32.0-36.0); MCV 95 fL (80-95); MPV 10.5 fL (8.0-11.0); Platelet Count 269 10^3/uL (130-400); RBC 4.05 10^6/uL (3.93-5.22); RDW 12.3 % (11.7-14.6); RDW-SD 42.5 fL
[2024-04-13 12:44] LABS: ALT 23 U/L (14-59); AST 18 U/L (15-37); Albumin 3.7 g/dL (3.4-5.0); Alkaline Phosphatase 57 U/L (46-116); Anion Gap 8.8 mmol/L (3-11); BUN 9 mg/dL (7-18); Bilirubin, Total 0.86 mg/dL (0.2-1.0); CO2 28.2 mmol/L (21.0-32.0); CREATININE 0.7 mg/dL (0.55-1.02); Calcium 9.7 mg/dL (8.5-10.1); Calculated LDL 146 mg/dL (<100); Chloride 104 mmol/L (98-107); Cholesterol 242 mg/dL (<200); Estimated GFR 94.15 (mL/min/1.73m2); Glucose 94 mg/dL (74-106); HDL Cholesterol 64 mg/dL (40-60); Potassium 3.9 mmol/L (3.5-5.1); Sodium 141 mmol/L (136-145); Total Protein 7.5 g/dL (6.4-8.2); Triglyceride 164 mg/dL (<150)
[2024-04-13 12:46] LABS: Hemoglobin A1C 5.5 % (<5.7)
== END 2024-04-13 03:08 | disposition home or self-care (01) ==
PROVIDERS: PCP Nurse Practitioner Family; Visit Provider Nurse Practitioner Family
DX: Z00.00 Encounter for general adult medical examination without abnormal findings (principal); E78.5 Hyperlipidemia, unspecified; F32.1 Major depressive disorder, single episode, moderate; G47.00 Insomnia, unspecified; Z23 Encounter for immunization; C50.912 Malignant neoplasm of unspecified site of left female breast; M25.512 Pain in left shoulder; Z71.6 Tobacco abuse counseling
CPT/HCPCS: 80053; 80061; 85027; 83036

== ENCOUNTER → 2024-06-18 12:53 | Outpatient (BNVA) | payer MEDICARE, SELFPAY | PROVIDERS: PCP Nurse Practitioner Family; Referring Provider Nurse Practitioner Family; Visit Provider Physical Therapy Assistant | DX: Z12.11 Encounter for screening for malignant neoplasm of colon (principal) ==

== ENCOUNTER → 2024-12-21 02:14 | Outpatient (CLI) | payer MEDICARE, SELFPAY ==
--- NOTE | 2024-12-21 | DI.MAMMO_ITS ---
Exam(s) MG MAMMO SCREENING 60 MIN DUR EXAM: MG MAMMO SCREENING 60 MIN DUR CLINICAL HISTORY: S/P XRT TO LT BREAST AND LYMPHS COMP 08/24/19, DUE FOR SCREENING, Z12.31 TECHNIQUE: Bilateral full field digital CC and MLO mammographic images were obtained with 3D tomosynthesis and utilizing computer aided detection (CAD). COMPARISON: Comparison is made with prior examinations. FINDINGS: Masses/Architectural Distortion: No suspicious masses or areas of architectural distortion are present. There again seen findings of a prior left lumpectomy. There are surgical clips at the surgical site. Microcalcifications: No suspicious pleomorphic-type are seen. Skin Thickening/Nipple Retraction: None. IMPRESSION: 1. No significant interval change with no specific features of malignancy noted. 2. Unless there is more urgent need, screening mammography is recommended, as per [place] [employer] guidelines. 3. Findings were discussed with the patient on the date of the examination. BI-RADS Category 2 - Benign Findings Breast Density - Category B - There are scattered areas of fibroglandular density. Breast density Category C or D implies that the patient has dense breast tissue. Dense breast tissue can make it harder to find cancer on a mammogram. Dense breast tissue is also associated with an increased risk of breast cancer. This information about the result of the mammogram report was provided to the patient to raise their awareness. Use this report when you speak with the patient about their risks for breast cancer, which includes their family history. At that time, you may recommend additional screening tests (Ultrasound or MRI) as these tests may add significant information. A negative radiographic report should not delay biopsy if a dominant or clinically suspicious mass is present. Up to ten percent of cancers are not identified on mammography. A negative report may reinforce clinical impression. Adenosis and dense breasts may obscure an underlying neoplasm. False positive reports average 6 to 10%. Patient will receive a letter notifying them of these results.
== END ==
LOC: DI 02:14
PROVIDERS: PCP Nurse Practitioner Family; Visit Provider Radiology Radiation Oncology
DX: Z12.31 Encounter for screening mammogram for malignant neoplasm of breast (principal)
CPT/HCPCS: 77063; 77067